=== PATIENT | female | born 1995 | race American Indian/Alaskan Native ===

== ENCOUNTER 2021-07-27 17:09 | Emergency (ER) | payer OTHER ==
[2021-07-27 17:50] VITALS: BP 104/66
[2021-07-27 20:23] LABS: Basophils % (Auto) 0.5 % (0.0-1.8); Eosinophils # (Auto) 0.2 K/mm3 (0.0-0.4); Eosinophils % (Auto) 2.2 % (0.0-4.3); Hematocrit 37.1 % (30.3-42.9); Hemoglobin 12.8 gm/dl (10.1-14.3); Lymphocytes # (Auto) 1.8 K/mm3 (1.2-5.4); Lymphocytes % (Auto) 20.8 % (13.4-35.0); Mean Corpuscular HGB Conc 34 % (30-34); Mean Corpuscular Volume 84 fl (79-97); Monocytes # (Auto) 0.7 K/mm3 (0.0-0.8); Platelet Count 240 K/mm3 (140-440); Red Blood Count 4.44 M/mm3 (3.65-5.03); Red Cell Distribution Width 13.4 % (13.2-15.2)
--- NOTE | 2021-07-27 20:28 | Emergency Department Report ---
ED Abdominal Pain HPI - General Chief Complaint: Upper Respiratory Infection Stated Complaint: ABDOMINAL PAIN Time Seen by Provider: 07/27/21 20:16 Source: patient Mode of arrival: Ambulatory Limitations: No Limitations - History of Present Illness Initial Comments: Is a 26-year-old female who presents for abdominal pain right flank radiating to suprapubic x2 weeks. Patient states she was treated for UTI 1 week ago however symptoms are persistent. Patient states low-grade fever malaise chills, states foul-smelling urine with urinary frequency, and nausea and vomiting. Patient denies dysuria no vaginal discharge or concern for STI. Patient denies history of renal stones. No T-max noted at home temperatures 100.3 Fahrenheit oral and triage today. Last nausea vomiting this afternoon. Last p.o. intake this afternoon. Patient rates pain, aching, at 4/10 and tolerable at this time. Patient denies relieving factor. Symptoms are exacerbated by voiding and movement. MD Complaint: abdominal pain, flank pain - Related Data Previous Rx's Medication Instructions Recorded Last Taken Type Ciprofloxacin HCl 500 mg PO BID 7 Days #14 tab 07/27/21 Unknown Rx Fluconazole [Diflucan TAB] 200 mg PO QDAY #1 tablet 07/27/21 Unknown Rx Allergies Allergy/AdvReac Type Severity Reaction Status Date / Time No Known Allergies Allergy Verified 07/27/21 20:35 ED Review of Systems ROS: Stated complaint: ABDOMINAL PAIN Other details as noted in HPI Constitutional: denies: chills, fever Eyes: denies: eye pain, eye discharge, vision change ENT: denies: ear pain, throat pain Respiratory: denies: cough, shortness of breath, wheezing Cardiovascular: denies: chest pain, palpitations Endocrine: no symptoms reported Gastrointestinal: abdominal pain, nausea, vomiting. denies: diarrhea, constipation, hematemesis, melena Genitourinary: urgency, frequency. denies: dysuria, hematuria, discharge, abnormal menses Musculoskeletal: back pain (Right flank) Skin: denies: rash, lesions Neurological: headache. denies: weakness, numbness, paresthesias, confusion, vertigo Psychiatric: denies: anxiety, depression Hematological/Lymphatic: as per HPI ED Past Medical Hx - Past Medical History Previous Medical History?: No - Surgical History Past Surgical History?: No - Social History Smoking Status: Never Smoker - Medications Home Medications: Home Medications Medication Instructions Recorded Confirmed Last Taken Type Ciprofloxacin HCl 500 mg PO BID 7 Days #14 tab 07/27/21 Unknown Rx Fluconazole [Diflucan TAB] 200 mg PO QDAY #1 tablet 07/27/21 Unknown Rx ED Physical Exam - General Limitations: No Limitations General appearance: alert - Head Head exam: Present: normocephalic - Eye Eye exam: Present: EOMI Pupils: Present: normal accommodation - ENT ENT exam: Present: mucous membranes moist - Neck Neck exam: Present: normal inspection, full ROM. Absent: tenderness, lymphadenopathy - Respiratory Respiratory exam: Present: normal lung sounds bilaterally. Absent: respiratory distress, wheezes - Cardiovascular Cardiovascular Exam: Present: regular rate, normal rhythm, normal heart sounds. Absent: systolic murmur, diastolic murmur, rubs, gallop - GI/Abdominal GI/Abdominal exam: Present: soft, tenderness (Right CVA), normal bowel sounds. Absent: distended, guarding, rebound, rigid, bruit, hernia - Rectal Rectal exam: Present: deferred - Extremities Exam Extremities exam: Present: normal inspection, full ROM. Absent: tenderness, pedal edema - Back Exam Back exam: Present: normal inspection, full ROM, CVA tenderness (R). Absent: CVA tenderness (L) - Neurological Exam Neurological exam: Present: alert, oriented X3, CN II-XII intact - Expanded Neurological Exam Expanded Patient oriented to: Present: person, place, time Speech: Present: fluid speech Best Eye Response ([place]): (4) open spontaneously Best Motor Response ([place]): (6) obeys commands Best Verbal Response ([place]): (5) oriented [place] Total: 15 - Psychiatric Psychiatric exam: Present: normal affect, normal mood - Skin Skin exam: Present: warm, dry, intact, normal color. Absent: rash ED Course Vital Signs 07/27/21 07/27/21 07/27/21 17:47 21:06 23:00 Temperature 100.3 F H 100.3 F H Pulse Rate 91 H 91 H Respiratory 18 16 18 Rate Blood Pressure 104/66 Blood Pressure 104/66 [Left] O2 Sat by Pulse 98 98 Oximetry ED Medical Decision Making - Lab Data Result diagrams: 07/27/21 19:59 07/27/21 19:59 Labs 07/27/21 07/27/21 07/27/21 19:59 19:59 22:43 WBC 8.8 RBC 4.44 Hgb 12.8 Hct 37.1 MCV 84 MCH 29 MCHC 34 RDW 13.4 Plt Count 240 Lymph % (Auto) 20.8 [place] % (Auto) 8.0 H Eos % (Auto) 2.2 Baso % (Auto) 0.5 Lymph # (Auto) 1.8 [place] # (Auto) 0.7 Eos # (Auto) 0.2 Baso # (Auto) 0.0 Seg Neutrophils % 68.5 Seg Neutrophils # 6.0 Sodium 136 L Potassium 4.0 Chloride 103.6 Carbon Dioxide 21 L Anion Gap 15 BUN 13 Creatinine 0.7 Estimated GFR > 60 BUN/Creatinine Ratio 19 Glucose 87 Calcium 9.3 Total Bilirubin 0.70 AST 27 ALT 32 Alkaline Phosphatase 78 Total Protein 8.2 Albumin 4.5 Albumin/Globulin Ratio 1.2 Lipase 47 Urine Color Yellow Urine Turbidity Cloudy Urine pH 5.0 Ur Specific [place] 1.014 Urine Protein 30 mg/dl Urine Glucose (UA) Neg Urine Ketones Neg Urine Blood Lg Urine Nitrite Pos Ur Reducing Substances Not Reportable Urine Bilirubin Neg Urine Ictotest Not Reportable Urine Urobilinogen < 2.0 Ur Leukocyte Esterase Lg Urine WBC (Auto) > 182.0 H Urine RBC (Auto) 21.0 U Epithel Cells (Auto) 5.0 Urine Bacteria (Auto) 1+ Urine WBC Clumps 2+ Urine Mucus 1+ Urine HCG, Qual Negative - Medical Decision Making Patient has had work-up with primary care doctor rule out renal stones rule out Senthil, rule out STI, UA noted for nitrates, will treat with cephalosporin x7 day s. Symptoms resolved medications given in ED, there is no fever no chills no nausea no vomiting patient denies dysuria frequency urgency or hematuria. There is no vaginal discharge no concern for STI follow-up with primary care doctor in 2 to 3 days. Critical care attestation.: If time is entered above; I have spent that time in minutes in the direct care of this critically ill patient, excluding procedure time. ED Disposition Clinical Impression: UTI (urinary tract infection) Qualifiers: Urinary tract infection type: acute cystitis Hematuria presence: without hematuria Qualified Code(s): N30.00 - Acute cystitis without hematuria Disposition: HOME / SELF CARE / HOMELESS Is pt being admited?: No Does the pt Need Aspirin: No Condition: Stable Instructions: Urinary Tract Infection, Adult Additional Instructions: Take medication as prescribed, follow-up with your doctor in 2 to 3 days. Hydrate as directed return to emergency department should symptoms worsen Prescriptions: Ciprofloxacin HCl 500 mg PO BID 7 Days #14 tab Fluconazole [Diflucan TAB] 200 mg PO QDAY #1 tablet Referrals: KANCHAN ANTHONY MD [Staff Physician] - 3-5 Days PRIMARY CARE, [Primary Care Provider] - 3-5 Days Forms: Work/School Release Form(ED)
[2021-07-27 20:42] LABS: Alanine Aminotransferase 32 units/L (7-56); Albumin 4.5 g/dL (3.9-5); Blood Urea Nitrogen 13 mg/dL (7-17); Calcium 9.3 mg/dL (8.4-10.2); Hemolysis Index 7
[2021-07-27 20:56] LABS: BUN/Creatinine Ratio 19
[2021-07-27] MEDS ORDERED: FAMOTIDINE 20 MG TAB PO ONE (21:00)
[2021-07-27] MEDS ORDERED: ACETAMINOPHEN 500 MG TAB PO ONE (21:00)
[2021-07-27] MEDS ORDERED: ONDANSETRON 4 MG ODT TAB PO ONE (21:00)
[2021-07-27 23:02] LABS: Bilirubin,Urine NEG (Negative); Blood,Urine LG (Negative); Color,Urine Yellow (Yellow); HCG Qualitative,Urine Negative (Negative); Urobilinogen,Urine < 2.0 mg/dL (<2.0)
[2021-07-27 23:04] LABS: Bacteria,Urine 1+ /HPF (Negative); Mucus,Urine 1+ /HPF
[2021-07-27 23:05] LABS: WBC,Urine > 182.0 /HPF (0.0-6.0)
== END 2021-07-27 23:10 | disposition home or self-care (01) ==
LOC: ED 17:09
DX: N39.0 Urinary tract infection, site not specified (principal)
CPT/HCPCS: 36415; 80053; 81001; 81025; 83690; 85025; 99283; J3490; Q0162